=== PATIENT | female | born 1950 | race Caucasian/White ===

== ENCOUNTER 2019-06-04 20:21 | Inpatient (IN) | payer MEDICARE ==
[~2019-06-04] VITALS: Ht 162.6 cm; Wt 62.6 kg
--- NOTE | 2019-06-04 00:57 | NUR ---
GPS ADMISSION NOTES: ADMITTED A 69-YR OLD FEMALE, FROM [facility]. PT IS ON 5150 HOLD FOR DTS, DTO, GD. PER HOLD PT IS UNPREDICTABLE HAS BEEN INCREASINGLY AGITATED AND BECAME COMBATIVE, HITTING DAUGHTER AND HITTING CERVANTES. PT UNABLE TO CARE FOR SELF. UPON FACE TO FACE ASSESSMENT, PATIENT IS ALERT AND ORIENTED X1-2, CONFUSED, DISORIENTED, DISORGANIZED, AGITATED, AGGRESSIVE, COMBATIVE, AMBULATORY WITH STEADY GAIT. PT REFUSED TO SIGN CONSENT FORMS. PT'S RIGHTS DISCUSSED GUIDE TO PRESCRIPTION MEDICATIONS PROVIDED. V/S WNL. NO SOB. NO COMPLAIN OF PAIN/DISCOMFORT. NO APPARENT DISTRESS NOTED. BELONGINGS WERE INVENTORIED AND CHECKED FOR CONTRABAND. SKIN/BODY ASSESSMENT DONE. SKIN CLEAR AND INTACT. PT IS UNDER THE PSYCHIATRIC CARE OF DR. JOSEPH ORDERS OBTAINED, AND UNDER THE MEDICAL CARE OF DR. BOYKIN. ALL NEEDS ATTENDED AND ANTICIPATED. BED LOCKED AND PLACED IN LOWEST POSITION. SIDERAILS UPX2. CALL VENCES WITHIN REACH. WILL CONTINUE TO MONITOR Q15 MINS FOR SAFETY AND BEHAVIOR.
[2019-06-04] MEDS ORDERED: QUET50TA PO (21:25)
[2019-06-04] MEDS ORDERED: ALPR1TAB2 PO (21:25)
[2019-06-04] MEDS ORDERED: LEVO75TA7 PO (21:25)
[2019-06-04] MEDS ORDERED: SERT50TA PO (21:25)
[2019-06-04] MEDS ORDERED: ACETAMINOPHEN 325 MG TABLET PO PRN (21:30)
[2019-06-04] MEDS ORDERED: MAGNESIUM HYDROXIDE 30 ML UDC PO PRN (21:30)
[2019-06-04] MEDS ORDERED: BLOOD SUGAR DIAGNOSTIC 1 EACH STRIP IN ONE (21:30)
[2019-06-04] MEDS ORDERED: MAG HYDROX/AL HYDROX/SIMETH 30 ML UDC PO PRN (21:30)
[2019-06-04] MEDS: LORAZEPAM 0.5 MG TABLET PO PRN (21:38)
[2019-06-04 22:00] VITALS: BP 134/64
[2019-06-04] MEDS: TEMAZEPAM 7.5 MG CAPSULE PO PRN (22:34)
--- NOTE | 2019-06-04 23:25 | NUR ---
PT IS AGGRESSIVE, HOSTILE, HITTING STAFF, SCREAMING/YELLING, NON DIRECTABLE. CALLED AND SPOKE TO DR. JOSEPH ORDERED ZYPREXA 3MG IM ONCE. PREPARE AND ADMINISTERED. PT TOLERATED WELL. WILL CONTINUE TO MONITOR FOR SAFETY AND BEHAVIOR [id number].
[2019-06-04] MEDS ORDERED: OLANZAPINE 10 MG VIAL IM ONE (23:30)
[2019-06-05] MEDS: LORAZEPAM 0.5 MG TABLET PO PRN ×3 (02:01→19:30)
[2019-06-05 07:47] LABS: BASOPHILS % (AUTO) 0.3 % (0.0-2.0); HEMATOCRIT 42 % (33-45); HEMOGLOBIN 13.7 g/dL (11.5-14.8); LYMPHOCYTES # (AUTO) 0.5 /CMM (0.8-4.8); LYMPHOCYTES % (AUTO) 3.9 % (20.0-44.0); MEAN CORPUSCULAR HGB CONC 33 g/dl (31.0-36.0); MEAN CORPUSCULAR VOLUME 91 fL (82-100); MONOCYTES % (AUTO) 7.4 % (2.0-12.0); NEUTROPHILS # (AUTO) 12.2 /CMM (1.8-8.9); NEUTROPHILS % (AUTO) 88.4 % (43.0-81.0); PLATELET COUNT (AUTO) 152 /CMM (150-450); RED BLOOD CELL COUNT(AUTO) 4.56 MIL/uL (4.0-5.2); WHITE BLOOD COUNT (AUTO) 13.9 K/uL (4.3-11.0)
[2019-06-05 08:00] VITALS: BP 127/58
[2019-06-05 08:07] LABS: ALBUMIN 4.2 g/dL (3.4-5.0); BILIRUBIN,TOTAL 0.6 mg/dL (0.2-1.0); CALCIUM, SERUM 9.1 mg/dL (8.5-10.1); CREATININE 0.8 mg/dL (0.6-1.3); POTASSIUM 3.5 mmol/L (3.5-5.1); TOTAL PROTEIN, SERUM 7.2 g/dL (6.4-8.2)
[2019-06-05 08:21] LABS: CHOLESTEROL 263 mg/dL (<200); HDL CHOLESTEROL 65 mg/dL (40-60); LDL 175 mg/dL (0-99); TRIGLYCERIDES 81 mg/dL (30-150)
[2019-06-05] MEDS: LEVOTHYROXINE SODIUM 75 MCG TABLET PO SCH (08:38)
[2019-06-05] MEDS: SERTRALINE HCL 50 MG TABLET PO SCH (12:22)
--- NOTE | 2019-06-05 12:31 | NUR ---
GPS RN NOTE: PT PACING AROUND THE UNIT RESTLESS AND ANXIOUS ATIVAN 0.5 MG PO PRN GIVEN PER MD ORDER WILL CONTINUE MONITORING.
[2019-06-05 16:00] VITALS: BP 106/77
[2019-06-05 20:00] VITALS: BP 140/70
[2019-06-05] MEDS: BENZTROPINE MESYLATE (1 MG) 1 MG TABLET PO SCH (21:18)
[2019-06-05] MEDS: risperiDONE-M 0.5 MG TAB.RAPDIS PO SCH (21:18)
[2019-06-05] MEDS: TEMAZEPAM 7.5 MG CAPSULE PO PRN (21:54)
[2019-06-06] MEDS: LORAZEPAM 0.5 MG TABLET PO PRN ×3 (04:00→23:40)
[2019-06-06 07:00] LABS: APPEARANCE,URINE SL CLOUDY (CLEAR); BILIRUBIN,URINE 1+ (NEGATIVE); BLOOD, URINE TRACE Ery/uL (NEGATIVE); COLOR,URINE YELLOW (YELLOW); KETONES,URINE 1+ (NEGATIVE); LEUKOCYTE ESTERASE ,URINE 1+ (NEGATIVE); NITRITE, URINE NEGATIVE (NEGATIVE); PH,URINE 5.5 (5.0-8.0); PROTEIN,URINE TRACE mg/dl (NEGATIVE); UGLUCOSE NEGATIVE (NEGATIVE); UROBILINOGEN,URINE 0.2 EU/dL (0.2)
[2019-06-06 07:10] LABS: BACTERIA,URINE Few /HPF (None Seen); MUCUS,URINE Few /LPF (None Seen); SQUAMOUS EPITHELIAL CELL,UR Few /HPF (None Seen)
[2019-06-06 08:00] VITALS: BP 130/60
[2019-06-06] MEDS: LEVOTHYROXINE SODIUM 75 MCG TABLET PO SCH (08:13)
[2019-06-06] MEDS: SERTRALINE HCL 50 MG TABLET PO SCH (12:12)
[2019-06-06] MEDS: risperiDONE 0.25 MG TABLET PO SCH (13:35)
[2019-06-06 16:00] VITALS: BP 134/84
[2019-06-06 19:39] VITALS: BP 130/54
[2019-06-06] MEDS: BENZTROPINE MESYLATE (1 MG) 1 MG TABLET PO SCH (21:03)
[2019-06-06] MEDS: risperiDONE-M 0.5 MG TAB.RAPDIS PO SCH (21:03)
[2019-06-06] MEDS: TEMAZEPAM 7.5 MG CAPSULE PO PRN (21:29)
[2019-06-07 07:09] LABS: BASOPHILS % (AUTO) 0.5 % (0.0-2.0); EOSINOPHILS % (AUTO) 0.4 % (0.0-6.0); HEMATOCRIT 45 % (33-45); LYMPHOCYTES # (AUTO) 0.8 /CMM (0.8-4.8); LYMPHOCYTES % (AUTO) 9.1 % (20.0-44.0); MEAN CORPUSCULAR HGB CONC 33 g/dl (31.0-36.0); MEAN CORPUSCULAR VOLUME 91 fL (82-100); MONOCYTES # (AUTO) 0.8 /CMM (0.1-1.30); MONOCYTES % (AUTO) 9.7 % (2.0-12.0); NEUTROPHILS # (AUTO) 6.9 /CMM (1.8-8.9); NEUTROPHILS % (AUTO) 80.3 % (43.0-81.0); PLATELET COUNT (AUTO) 178 /CMM (150-450); RED BLOOD CELL COUNT(AUTO) 4.95 MIL/uL (4.0-5.2); WHITE BLOOD COUNT (AUTO) 8.6 K/uL (4.3-11.0)
[2019-06-07 07:30] LABS: ALBUMIN 4.5 g/dL (3.4-5.0); CALCIUM, SERUM 9.3 mg/dL (8.5-10.1); CREATININE 0.7 mg/dL (0.6-1.3); POTASSIUM 4.2 mmol/L (3.5-5.1); TOTAL PROTEIN, SERUM 7.8 g/dL (6.4-8.2)
[2019-06-07 08:00] VITALS: BP 150/63
[2019-06-07] MEDS: LORAZEPAM 0.5 MG TABLET PO PRN (08:46)
[2019-06-07] MEDS: LEVOTHYROXINE SODIUM 75 MCG TABLET PO SCH (08:46)
[2019-06-07] MEDS: risperiDONE 0.25 MG TABLET PO SCH ×3 (08:46→16:59)
[2019-06-07] MEDS ORDERED: Z GUARD REMEDY 4 OZ OINT TP SCH (09:00)
[2019-06-07] MEDS: SERTRALINE HCL 50 MG TABLET PO SCH (12:51)
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
--- NOTE | 2019-06-07 14:25 | NUR ---
INITIAL DISCHARGE PLAN: Per Ahsan [phone] he no longer is able to care for pt at home [address] [place] [address] and stated pt will be discharged to [facility] Address: [address] [place] [address] as pt already has a room. TIFFANY spoke with Lary, it network administrator who stated pt will go directly to their facility once stable for discharge. TIFFANY will help form a safe and proper discharge in collaboration with .
--- NOTE | 2019-06-07 15:26 | NUR ---
Group Note: SW encouraged pt to participate in group therapy on 06/07/19 at 2pm to discuss discharge planning. Pt has Dementia and unable to engage in a meaningful conversation. Pt is only alert to her name and stated that another pt was her previous . Pt unable to participate in a group discussion.
[2019-06-07 16:00] VITALS: BP 114/66
--- NOTE | 2019-06-07 19:30 | NUR ---
GPS RN NOTE, RECEIVED PATIENT AWAKE AND IN BED, NO S/S OR COMPLAINTS OF PAIN AT THIS TIME. PATIENT IS DISPLAYING NO S/S OF APPARENT DISTRESS AT THIS TIME. PATIENT BREATHING IS UNLABORED WITH EQUAL RISE AND FALL OF THE CHEST. PATIENT IS ALERT AND ORIENTED X 1 ON ROOM AIR WITH A SPO2 94 %. PATIENT IS COMPLIANT WITH MEDICATION, DISORGANIZED, CONFUSED, SUSPICIOUS, PARANOID, AND NEEDS CONSTANT REORIENTATION. PATIENT DENIES SUICIDE IDEATIONS AND HOMICIDAL IDEATIONS AT THIS TIME. PATIENT ASSISTED WITH TURNING AND REPOSITIONING Q2 HR AND PRN FOR COMFORT AND CIRCULATION. PATIENT HAS NO NEEDS AT THIS TIME. PATIENT EDUCATED ON THE USE OF THE CALL VENCES. PATIENT BED SIDE RAILS UP X 2 FOR SAFETY, BED IS LOCKED AND LOW. WILL CONTINUE TO MONITOR Q15 MIN WITH THE HELP OF STAFF TO MAINTAIN SAFETY.
[2019-06-07 20:10] VITALS: BP 108/54
[2019-06-07] MEDS: BENZTROPINE MESYLATE (1 MG) 1 MG TABLET PO SCH (22:09)
[2019-06-07] MEDS: risperiDONE-M 0.5 MG TAB.RAPDIS PO SCH (22:10)
[2019-06-07] MEDS: SIMVASTATIN 10 MG TABLET PO SCH (22:10)
[2019-06-07] MEDS: TEMAZEPAM 7.5 MG CAPSULE PO PRN (23:29)
--- NOTE | 2019-06-07 23:29 | NUR ---
GPS RN NOTE, PATIENT HAS A COMPLAINT OF NOT BEING ABLE TO SLEEP AND IS REQUESTING RESTORIL AT THIS TIME. PATIENT VITAL SIGNS ARE STABLE. GAVE RESTORIL 7.5MG PO HS PRN. WILL REASSESS FOR INSOMNIA AND I WILL CONTINUE TO MONITOR THIS PATIENT.
[2019-06-08] MEDS: LORAZEPAM 0.5 MG TABLET PO PRN ×2 (03:36→16:45)
--- NOTE | 2019-06-08 03:36 | NUR ---
GPS RN NOTE, PATIENT HAS A COMPLAINT OF FEELING ANXIOUS AND IS REQUESTING ATIVAN. PATIENT VITAL SIGNS ARE STABLE. GAVE ATIVAN 0.5MG PO Q6HR PRN ORDERED. WILL REASSESS FOR ANXIETY AND I WILL CONTINUE TO MONITOR THIS PATIENT.
[2019-06-08] MEDS: LEVOTHYROXINE SODIUM 75 MCG TABLET PO SCH (07:36)
[2019-06-08] MEDS: risperiDONE 0.25 MG TABLET PO SCH ×3 (07:50→16:45)
[2019-06-08 08:00] VITALS: BP 115/59
[2019-06-08 11:29] LABS: BASOPHILS # (AUTO) 0.1 /CMM (0.0-0.2); BASOPHILS % (AUTO) 0.7 % (0.0-2.0); EOSINOPHILS % (AUTO) 0.4 % (0.0-6.0); HEMATOCRIT 43 % (33-45); HEMOGLOBIN 14.7 g/dL (11.5-14.8); LYMPHOCYTES # (AUTO) 0.7 /CMM (0.8-4.8); LYMPHOCYTES % (AUTO) 10.1 % (20.0-44.0); MEAN CORPUSCULAR HGB CONC 34 g/dl (31.0-36.0); MEAN CORPUSCULAR VOLUME 91 fL (82-100); MONOCYTES # (AUTO) 0.7 /CMM (0.1-1.30); MONOCYTES % (AUTO) 9.3 % (2.0-12.0); NEUTROPHILS # (AUTO) 5.8 /CMM (1.8-8.9); NEUTROPHILS % (AUTO) 79.5 % (43.0-81.0); PLATELET COUNT (AUTO) 186 /CMM (150-450); RED BLOOD CELL COUNT(AUTO) 4.76 MIL/uL (4.0-5.2); WHITE BLOOD COUNT (AUTO) 7.3 K/uL (4.3-11.0)
[2019-06-08 11:52] LABS: ALBUMIN 4.5 g/dL (3.4-5.0); BILIRUBIN,DIRECT 0.2 mg/dL (0.0-0.2); CALCIUM, SERUM 9.3 mg/dL (8.5-10.1); CREATININE 0.7 mg/dL (0.6-1.3); MAGNESIUM 2.2 mg/dL (1.8-2.4); POTASSIUM 3.2 mmol/L (3.5-5.1); TOTAL PROTEIN, SERUM 7.7 g/dL (6.4-8.2)
[2019-06-08] MEDS: SERTRALINE HCL 50 MG TABLET PO SCH (12:24)
[2019-06-08] MEDS: DIVALPROEX SODIUM 125 MG CAP.SPRINK PO SCH ×2 (12:24→16:45)
--- NOTE | 2019-06-08 14:17 | NUR ---
GROUP NOTE: SW encouraged pt to participate in group therapy on this present day to discuss "positive coping skills." Pt has Dementia and unable to engage in a meaningful conversation. Pt is only alert to her name and stated that another pt was her previous . Pt unable to participate in a group discussion.
[2019-06-08] MEDS ORDERED: POTASSIUM CHLORIDE 20 MEQ TAB.PRT.SR PO ONE (14:30)
[2019-06-08 16:00] VITALS: BP 159/72
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
[2019-06-08 19:58] VITALS: BP 141/65
[2019-06-08 20:00] VITALS: BP 141/65
[2019-06-08] MEDS: BENZTROPINE MESYLATE (1 MG) 1 MG TABLET PO SCH (21:38)
[2019-06-08] MEDS: SIMVASTATIN 10 MG TABLET PO SCH (21:39)
[2019-06-08] MEDS: risperiDONE-M 0.5 MG TAB.RAPDIS PO SCH (21:39)
[2019-06-09 07:09] LABS: BASOPHILS # (AUTO) 0.1 /CMM (0.0-0.2); BASOPHILS % (AUTO) 0.8 % (0.0-2.0); EOSINOPHILS % (AUTO) 0.4 % (0.0-6.0); HEMATOCRIT 43 % (33-45); HEMOGLOBIN 14.4 g/dL (11.5-14.8); LYMPHOCYTES # (AUTO) 0.8 /CMM (0.8-4.8); LYMPHOCYTES % (AUTO) 12.4 % (20.0-44.0); MEAN CORPUSCULAR HGB CONC 34 g/dl (31.0-36.0); MEAN CORPUSCULAR VOLUME 91 fL (82-100); MONOCYTES # (AUTO) 0.7 /CMM (0.1-1.30); MONOCYTES % (AUTO) 10.2 % (2.0-12.0); NEUTROPHILS # (AUTO) 5.2 /CMM (1.8-8.9); NEUTROPHILS % (AUTO) 76.2 % (43.0-81.0); PLATELET COUNT (AUTO) 186 /CMM (150-450); WHITE BLOOD COUNT (AUTO) 6.8 K/uL (4.3-11.0)
[2019-06-09 07:21] LABS: ALBUMIN 4.2 g/dL (3.4-5.0); BILIRUBIN,TOTAL 0.9 mg/dL (0.2-1.0); CALCIUM, SERUM 9.1 mg/dL (8.5-10.1); CREATININE 0.7 mg/dL (0.6-1.3); TOTAL PROTEIN, SERUM 7.4 g/dL (6.4-8.2)
[2019-06-09] MEDS: LEVOTHYROXINE SODIUM 75 MCG TABLET PO SCH (07:31)
[2019-06-09] MEDS: risperiDONE 0.25 MG TABLET PO SCH ×3 (07:33→16:28)
[2019-06-09 08:00] VITALS: BP 130/73
[2019-06-09] MEDS: LORAZEPAM 0.5 MG TABLET PO PRN ×2 (08:18→21:12)
[2019-06-09] MEDS: DIVALPROEX SODIUM 125 MG CAP.SPRINK PO SCH ×3 (08:18→16:28)
[2019-06-09] MEDS: SERTRALINE HCL 50 MG TABLET PO SCH (12:14)
[2019-06-09 16:00] VITALS: BP 149/62
[2019-06-09 16:17] LABS: APPEARANCE,URINE TURBID (CLEAR); BILIRUBIN,URINE 1+ (NEGATIVE); BLOOD, URINE TRACE Ery/uL (NEGATIVE); COLOR,URINE DARK YELLO (YELLOW); KETONES,URINE 2+ (NEGATIVE); LEUKOCYTE ESTERASE ,URINE 1+ (NEGATIVE); NITRITE, URINE NEGATIVE (NEGATIVE); PROTEIN,URINE TRACE mg/dl (NEGATIVE); UGLUCOSE NEGATIVE (NEGATIVE); UROBILINOGEN,URINE 0.2 EU/dL (0.2)
[2019-06-09 16:25] LABS: BACTERIA,URINE Many /HPF (None Seen); RBC,URINE 0-2 /HPF (0-2); SQUAMOUS EPITHELIAL CELL,UR Rare /HPF (None Seen)
[2019-06-09 16:26] LABS: URINE AMORPHOUS URATE Many /HPF (None Seen)
[2019-06-09 20:14] VITALS: BP 144/75
[2019-06-09] MEDS: TEMAZEPAM 7.5 MG CAPSULE PO PRN (22:12)
[2019-06-09] MEDS: risperiDONE-M 0.5 MG TAB.RAPDIS PO SCH (22:12)
[2019-06-09] MEDS: BENZTROPINE MESYLATE (1 MG) 1 MG TABLET PO SCH (22:12)
[2019-06-09] MEDS: SIMVASTATIN 10 MG TABLET PO SCH (22:12)
[2019-06-10 07:48] LABS: ALBUMIN 3.8 g/dL (3.4-5.0); BILIRUBIN,DIRECT 0.2 mg/dL (0.0-0.2); BILIRUBIN,TOTAL 1.1 mg/dL (0.2-1.0); CREATININE 0.7 mg/dL (0.6-1.3); PHOSPHORUS 3.2 mg/dL (2.5-4.9); POTASSIUM 3.7 mmol/L (3.5-5.1); TOTAL PROTEIN, SERUM 6.7 g/dL (6.4-8.2)
[2019-06-10 08:00] VITALS: BP 161/68
[2019-06-10 08:48] LABS: BASOPHILS # (AUTO) 0.1 /CMM (0.0-0.2); BASOPHILS % (AUTO) 0.8 % (0.0-2.0); EOSINOPHILS % (AUTO) 0.5 % (0.0-6.0); HEMATOCRIT 43 % (33-45); HEMOGLOBIN 14.1 g/dL (11.5-14.8); LYMPHOCYTES # (AUTO) 1.1 /CMM (0.8-4.8); LYMPHOCYTES % (AUTO) 14.6 % (20.0-44.0); MEAN CORPUSCULAR HGB CONC 33 g/dl (31.0-36.0); MEAN CORPUSCULAR VOLUME 91 fL (82-100); MONOCYTES # (AUTO) 0.8 /CMM (0.1-1.30); MONOCYTES % (AUTO) 10.6 % (2.0-12.0); NEUTROPHILS # (AUTO) 5.7 /CMM (1.8-8.9); NEUTROPHILS % (AUTO) 73.5 % (43.0-81.0); PLATELET COUNT (AUTO) 191 /CMM (150-450); RED BLOOD CELL COUNT(AUTO) 4.67 MIL/uL (4.0-5.2); WHITE BLOOD COUNT (AUTO) 7.8 K/uL (4.3-11.0)
[2019-06-10] MEDS: LEVOTHYROXINE SODIUM 75 MCG TABLET PO SCH (09:03)
[2019-06-10] MEDS: risperiDONE 0.25 MG TABLET PO SCH ×3 (09:03→16:46)
--- NOTE | 2019-06-10 09:47 | NUR ---
initial PATIENT ALERT TO SELF, CONFUSED, VERY sleepy easy to arouse takes po medications well will continue to monitor.
--- NOTE | 2019-06-10 10:02 | NUR ---
TIFFANY contacted pts Ahsan [phone] and informed him pt is scheduled for a PROBABLE CAUSE HEARING on this present day. Pts stated that he wishes to attend and SW informed him that the hearing is scheduled for 4:00pm, however, it may be held earlier. stated that he will make himself available for the hearing and stated he wishes for pt to be discharged on this present day.
--- NOTE | 2019-06-10 14:44 | NUR ---
GROUP NOTE: SW encouraged pt to participate in group therapy on this present day to discuss "discharge planning." Pt has Dementia and unable to engage in a meaningful conversation. Pt is only alert to her name and believes her is on his way to pick her up.
[2019-06-10 16:00] VITALS: BP 139/51
--- NOTE | 2019-06-10 18:31 | NUR ---
CLOSING PT GIVEN ALL MEDICATIONS NEEDS TENDED TO KEPT SAFE BED IN LOW POSITION WITH GIVEN REPORT TO PM NURSE FOR CONTINUITY OF CARE
[2019-06-10 20:00] VITALS: BP 107/68
[2019-06-10] MEDS: LORAZEPAM 0.5 MG TABLET PO PRN (21:32)
[2019-06-10] MEDS: TEMAZEPAM 7.5 MG CAPSULE PO PRN (21:33)
[2019-06-10] MEDS: risperiDONE-M 0.5 MG TAB.RAPDIS PO SCH (21:33)
[2019-06-10] MEDS: BENZTROPINE MESYLATE (1 MG) 1 MG TABLET PO SCH (21:33)
[2019-06-10] MEDS: SIMVASTATIN 10 MG TABLET PO SCH (21:33)
[2019-06-11 08:00] VITALS: BP 125/80
[2019-06-11] MEDS: LEVOTHYROXINE SODIUM 75 MCG TABLET PO SCH (09:00)
[2019-06-11] MEDS: risperiDONE 0.25 MG TABLET PO SCH ×3 (09:00→16:33)
[2019-06-11] MEDS: LORAZEPAM 0.5 MG TABLET PO PRN ×2 (10:30→18:50)
--- NOTE | 2019-06-11 10:30 | NUR ---
wandering about floor and in to other pt's jules.a little agitated,given ativan 0.5 mg po.
[2019-06-11 16:00] VITALS: BP 112/68
--- NOTE | 2019-06-11 18:50 | NUR ---
medicated for agitation with ativan.
--- NOTE | 2019-06-11 19:15 | NUR ---
RN NOTES: RECEIVED REPORT FROM ASHLEE Verde RN. PT NOTED TO BE AMBULATING AROUND THE HALLWAY, ALWAYS TRYING TO PICK SOMETHING FROM THE FLOOR, FALL RISK, ASSISTED BACK TO BED. PT A/O X1-2, ON RA RESPIRATIONS EVEN AND UNLABORED. DENIES ANY SI/HI AT THIS TIME. SAFETY PRECAUTIONS FOR FALL INITIATED, SIDE RAILS UP X3, FOR SAFETY, WILL CONTINUE TO MONITOR [id number] FOR SAFETY AND ANY CHANGES IN BEHAVIOR.
[2019-06-11 20:00] VITALS: BP 105/69
[2019-06-11] MEDS: BENZTROPINE MESYLATE (1 MG) 1 MG TABLET PO SCH (21:12)
[2019-06-11] MEDS: risperiDONE-M 0.5 MG TAB.RAPDIS PO SCH (21:12)
[2019-06-11] MEDS: SIMVASTATIN 10 MG TABLET PO SCH (21:13)
[2019-06-12 08:00] VITALS: BP 134/67
[2019-06-12] MEDS: LEVOTHYROXINE SODIUM 75 MCG TABLET PO SCH (09:07)
[2019-06-12] MEDS: risperiDONE 0.25 MG TABLET PO SCH ×3 (09:08→18:16)
[2019-06-12] MEDS: LORAZEPAM 0.5 MG TABLET PO PRN ×2 (09:08→20:29)
--- NOTE | 2019-06-12 09:08 | NUR ---
rn notes administered ativan 0.5 mg po prn for anxiety, per patient request, v/s taken bp 134/67, p-68, continued monitoring.
[2019-06-12 15:53] VITALS: BP 132/70
[2019-06-12 20:27] VITALS: BP 146/96
[2019-06-12] MEDS: risperiDONE-M 0.5 MG TAB.RAPDIS PO SCH (21:06)
[2019-06-12] MEDS: SIMVASTATIN 10 MG TABLET PO SCH (21:06)
[2019-06-12] MEDS: BENZTROPINE MESYLATE (1 MG) 1 MG TABLET PO SCH (21:20)
[2019-06-13 08:00] VITALS: BP 135/68
[2019-06-13] MEDS: risperiDONE 0.25 MG TABLET PO SCH ×3 (08:46→16:22)
[2019-06-13] MEDS: LEVOTHYROXINE SODIUM 75 MCG TABLET PO SCH (08:46)
[2019-06-13] MEDS: LORAZEPAM 0.5 MG TABLET PO PRN ×2 (10:57→19:31)
--- NOTE | 2019-06-13 11:00 | NUR ---
RN NOTES PT NOTED BECOMING INCREASINGLY MORE AND MORE AGITATED. PRN 0.5MG ATIVAN GIVEN. WILL CONTINUE TO MONITOR.
--- NOTE | 2019-06-13 13:17 | NUR ---
TIFFANY contacted pts Ahsan [phone] and informed him pt is scheduled for discharge tomorrow Thursday06/14/19. stated that his son in law will pick pt up at 1200pm.
[2019-06-13 16:00] VITALS: BP 127/99
[2019-06-13 19:56] VITALS: BP 151/63
[2019-06-13] MEDS: SIMVASTATIN 10 MG TABLET PO SCH (21:25)
[2019-06-13] MEDS: BENZTROPINE MESYLATE (1 MG) 1 MG TABLET PO SCH (21:25)
[2019-06-13] MEDS: risperiDONE-M 0.5 MG TAB.RAPDIS PO SCH (21:25)
[2019-06-13] MEDS: TEMAZEPAM 7.5 MG CAPSULE PO PRN (23:23)
[2019-06-14 08:00] VITALS: BP 124/56
[2019-06-14] MEDS: LEVOTHYROXINE SODIUM 75 MCG TABLET PO SCH (08:43)
[2019-06-14] MEDS: risperiDONE 0.25 MG TABLET PO SCH (08:43)
[2019-06-14] MEDS: LORAZEPAM 0.5 MG TABLET PO PRN (08:44)
--- NOTE | 2019-06-14 08:44 | NUR ---
RN NOTES ADMINISTERED ATIVAN 0.5 MG PO PRN FOR ANXIETY, HARD TO FOLLOW DIRECTION, V/S TAKEN BP -124/56, P-70. CONTINUED MONITORING.
--- NOTE | 2019-06-14 10:22 | NUR ---
DISCHARGE NOTE: Pt will be discharging at 12:00pm via private vehicle to [facility] Address: [address] [place] [address] . Pts Ahsan [phone] will be picking pt up and transporting to assisted living. Pts mood is confused and disorganized with congruent affect. Pt denied visual/auditory hallucinations and denied suicidal/homicidal ideation. Pt will follow up with Psychiatrist: Dr. Ayan Celestin Address: [address] [place] [address] and [facility] [place]: Dr. Gray Mckeon Address: [address] [place] [address] [place] [address] . The multidisciplinary exit care form was done, printed, signed, and given to the patient.
--- NOTE | 2019-06-14 12:35 | NUR ---
SEED LABORATORY TECHNICIAN NOTES PATIENT DISCHARGE AT THIS TIME GOING [facility]. PATIENT A/O X2/3, WITH FORGETFULNESS. PATIENT STABLE NO ACUTE RESPIRATORY DISTRESS, V/S STABLE, MED COMPLAINS, AMBULATORY SELF CARE. PATIENT REFUSED SI/HI/AVH AT THIS TIME OF DISCHARGE. MED RECONCILIATION AND DISCHARGE ORDER REVIEWED AND EXPLAINED TO PATIENT AND SECOND OPERATOR NAME GILBERTO. SECOND OPERATOR VERBALIZED UNDERSTANDING. BELONGING RETURNED BACK TO THE PATIENT , ONLY MISSING GREEN PANTS, AND BLACK SWEETER WILL FOLLOW UP WHEN FENDED WILL CALL FAMILY TO COIN WRAPPING MACHINE OPERATOR. PATIENT WILL FOLLOW PRIMARY PSYCHIATRIST, AND SENIOR ACCOUNT REPRESENTATIVE. ESCORTED PATIENT TO THE LOBBY FOR SAFETY. PAPERWORK HANDED TO THE SECOND OPERATOR, ALS PRESCRIPTIONS FAXED TO THE [facility] FAX # [phone]. PATIENT COIN WRAPPING MACHINE OPERATOR SECOND OPERATOR NAME GILBERTO PHONE #-[phone].
== END 2019-06-14 12:52 | DRG 885 ==
LOC: GPS 20:21
PROVIDERS: ADMIT Psychiatry & Neurology Psychosomatic Medicine; ATTEND Internal Medicine
DX: F25.9 Schizoaffective disorder, unspecified (principal); F01.50 Vascular dementia, unspecified severity, without behavioral disturbance, psychotic disturbance, mood disturbance, and anxiety; R45.851 Suicidal ideations; E03.9 Hypothyroidism, unspecified; F03.90 Unspecified dementia, unspecified severity, without behavioral disturbance, psychotic disturbance, mood disturbance, and anxiety; F41.9 Anxiety disorder, unspecified; R45.850 Homicidal ideations; Z73.6 Limitation of activities due to disability; R74.0 Nonspecific elevation of levels of transaminase and lactic acid dehydrogenase [LDH]
CPT/HCPCS: 36415; 80048-TC; 80053-TC; 80061-TC; 80076-TC; 81000-TC; 83735-TC; 84100-TC; 84443-TC; 85025-TC; 87081-TC; 87086-TC; 92526; 92611-TC; J3490

== ENCOUNTER 2022-07-01 09:56 | Inpatient (IN) | payer MEDICARE, OTHER ==
[~2022-07-01] VITALS: Ht 160 cm; Wt 47.2 kg
[~2022-07-01 09:56] MED LIST: LEVO75TA7 PO
[2022-07-01 10:58] LABS: BASOPHILS # (AUTO) 0.1 K/uL (0.0-0.2); BASOPHILS % (AUTO) 1.3 % (0.0-2.0); EOSINOPHILS % (AUTO) 2.2 % (0.0-6.0); HEMATOCRIT 39 % (33-45); HEMOGLOBIN 12.7 g/dL (11.5-14.8); LYMPHOCYTES % (AUTO) 14.1 % (20.0-44.0); MEAN CORPUSCULAR HGB CONC 32 g/dl (31.0-36.0); MEAN CORPUSCULAR VOLUME 87 fL (82-100); MONOCYTES # (AUTO) 0.8 K/uL (0.1-1.30); NEUTROPHILS # (AUTO) 4.7 K/uL (1.8-8.9); NEUTROPHILS % (AUTO) 70.4 % (43.0-81.0); PLATELET COUNT (AUTO) 185 K/uL (150-450); RED BLOOD CELL COUNT(AUTO) 4.51 MIL/uL (4.0-5.2); WHITE BLOOD COUNT (AUTO) 6.7 K/uL (4.3-11.0)
[2022-07-01 11:18] LABS: ALANINE AMINOTRANSFERASE 13 U/L (12-78); ALBUMIN 3.3 g/dL (3.4-5.0); ALCOHOL, BLOOD < 3 mg/dL (0-0); ALKALINE PHOSPHATASE 67 U/L (46-116); ASPARTATE AMINOTRANSFERASE 13 U/L (15-37); BILIRUBIN,DIRECT 0.1 mg/dL (0.0-0.2); BILIRUBIN,TOTAL 0.3 mg/dL (0.2-1.0); CALCIUM, SERUM 8.9 mg/dL (8.5-10.1); CARBON DIOXIDE 30 mmol/L (21-32); CHLORIDE 106 mmol/L (98-107); CREATININE 0.8 mg/dL (0.6-1.3); GLUCOSE 102 mg/dL (74-106); POTASSIUM 3.7 mmol/L (3.5-5.1); SODIUM SERUM 143 mmol/L (136-145); TOTAL PROTEIN, SERUM 6.5 g/dL (6.4-8.2); UREA NITROGEN, BLOOD 17 mg/dL (7-18)
[2022-07-01 11:38] LABS: ACETAMINOPHEN 0 ug/ml (10-30)
--- NOTE | 2022-07-01 11:55 | NUR ---
chandra pink sent to lab
--- NOTE | 2022-07-01 11:56 | NUR ---
UA SENT TO LAB
[2022-07-01] MEDS ORDERED: SERT50TA12 PO (12:06)
[2022-07-01] MEDS ORDERED: SERT100T12 PO (12:06)
[2022-07-01] MEDS ORDERED: RISP0.2515 PO ×2 (12:06)
[2022-07-01] MEDS ORDERED: ALPR0.255 PO (12:06)
[2022-07-01 12:17] LABS: BILIRUBIN,URINE NEGATIVE (NEGATIVE); COLOR,URINE YELLOW (YELLOW); LEUKOCYTE ESTERASE ,URINE NEGATIVE (NEGATIVE); NITRITE, URINE NEGATIVE (NEGATIVE); PROTEIN,URINE NEGATIVE (NEGATIVE); UGLUCOSE NEGATIVE (NEGATIVE); UROBILINOGEN,URINE 0.2 EU/dL (0.2)
[2022-07-01] MEDS ORDERED: risperiDONE 0.25 MG TABLET PO ONE ×2 (12:18→12:30)
--- NOTE | 2022-07-01 12:24 | NUR ---
ART, LINOTYPE MACHINIST APPRENTICE CALLED FOR PSYCH EVAL.
[2022-07-01] MEDS ORDERED: SERTRALINE HCL 50 MG TABLET PO SCH ×2 (12:30)
[2022-07-01] MEDS ORDERED: SERTRALINE HCL 50 MG TABLET PO ONE (12:30)
[2022-07-01 13:09] LABS: BACTERIA,URINE Few /HPF (None Seen); MUCUS,URINE Few /LPF (None Seen); RBC,URINE 0-2 /HPF (0-2); SQUAMOUS EPITHELIAL CELL,UR Few /HPF (None Seen); WBC,URINE 0-2 /HPF (0-3)
--- NOTE | 2022-07-01 14:23 | NUR ---
MRSA SWAB COMPLETED AND BELONGINGS FORM COMPLETED
--- NOTE | 2022-07-01 14:30 | NUR ---
PT TRANSFERRED TO WITH BELONGINGS. PT STABLE AT THIS TIME. REPORT GIVEN TO ABRAHAM NUNN.
[2022-07-01] MEDS ORDERED: MAG HYDROX/AL HYDROX/SIMETH 30 ML UDC PO PRN (15:00)
[2022-07-01] MEDS ORDERED: BLOOD SUGAR DIAGNOSTIC 1 EACH STRIP IN ONE (15:00)
[2022-07-01] MEDS ORDERED: MAGNESIUM HYDROXIDE 30 ML UDC PO PRN (15:00)
[2022-07-01] MEDS ORDERED: LORAZEPAM 0.5 MG TABLET PO PRN (15:00)
[2022-07-01] MEDS ORDERED: ACETAMINOPHEN 325 MG TABLET PO PRN (15:00)
--- NOTE | 2022-07-01 15:38 | NUR ---
Treatment Plan: Pt is very confused and unable to sign treatment plan.
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
--- NOTE | 2022-07-01 15:38 | NUR ---
TIFFANY Family Contact: Pt's Nixon ([phone]) is involved in the care and is the DPOA. TIFFANY contacted Nixon and discussed treatment/discharge planning. He reported he is unable to care for pt at home and would want a SNF.
--- NOTE | 2022-07-01 15:38 | NUR ---
TIFFANY Initial Discharge Plan: Patient currently resides at home [place] at [address] [place] [address]; ([phone]). Pt has two caregives at home. Pt's Nixon ([phone]) is involved in the care and is the DPOA. TIFFANY contacted Nixon and discussed treatment/discharge planning. He reported he is unable to care for pt at home and would want a SNF. TIFFANY will work with the MD, family, and treatment team to help coordinate appropriate discharge.
[2022-07-01 16:10] VITALS: BP 154/81
--- NOTE | 2022-07-01 17:51 | NUR ---
ADMITTED A 72 Y/O FEMALE ON 5150 HOLD FOR GD , PER HOLD PT HAS BEEN PROGRESSIVELY HITTING ,KICKING ,AND BITING CARE GIVERS ,CAREGIVER UNABLE TO CARE FOR HER .UPON FACE TO FACE ASSESSMENT PATIENT IS CONFUSED ,DEPRESSED ,DISHELVED EASILY GETS AGITATED, DISORGANIZED, VERY POOR HYGIENE ,PT EASILY AGITATED ,NOT FOLLOWING DIRECTIONS ,REQUIRE CONSTANT REDIRECTIONS TIME, PT IS CONFUSED POOR INSIGHT ,POOR JUDGEMENT, PT. REFUSED TO SIGNS ADMISSION CONSENT PAPERS , DUE TO MENTAL STATUS .BOTH MD AWARE AND NOTIFIED OF THE ADMISSION, BELONGINGS CONTRABAND WERE DONE , NURSING ASSESSMENT DONE ,PT. RIGHTS HAND BOOK GIVEN AND EXPLAINED TO PATIENT ,PROVIDE THE PT WITH HANDBOOK, AND MEDICATIONS GUIDE, ENVIRONMENTAL SAFETY CHECK DONE, ENCOURAGED PT TO VERBALIZED FEELING AND THOUGHTS , ORIENT TO UNIT POLICY, NO ACUTE DISTRESS NOTED,VITAL SIGNS WNL ,DENIES ANY PAIN AT THIS TIME,WILL CONTINUE TO MONITOR FOR Q15 SAFETY .
--- NOTE | 2022-07-01 19:35 | NUR ---
GPS RN OPENING NOTES: RECEIVED PATIENT IN HALLWAY SITTING IN CHELI CHAIR, AWAKE A/O X1. FLAT AFFECT, DISHEVELED, ANXIOUS, RESTLESS, DISORGANIZED, DISORIENTED CONFUSED. UNABLE TO GIVE APPROPRIATE ANSWERS TO QUESTIONS. NEEDS FREQUENT REDIRECTION. NO S/S OF DISTRESS. RESPIRATION EVEN AND UNLABORED WITH EQUAL RISE AND FALL OF THE CHEST, ON ROOM AIR. PATIENT IS OFFERED FLUID AND SNACKS TOLERATED. WILL CONTINUE TO MONITOR Q15 MINS FOR MOOD, BEHAVIOR AND SAFETY. Addendum: 07/01/22 at 2025 by DARLIN RICE RN ERROR CHARTED UNDER ANOTHER STAFF
[2022-07-01] MEDS: TEMAZEPAM 7.5 MG CAPSULE PO PRN (21:38)
--- NOTE | 2022-07-01 21:43 | NUR ---
GPS RN NOTES: RESTORIL 7.5MG GIVEN PO FOR SLEEP AT 2137. WILL CONTINUE TO MONITOR.
[2022-07-01 22:02] VITALS: BP 125/59
[2022-07-02 07:00] LABS: ALANINE AMINOTRANSFERASE 12 U/L (12-78); ALBUMIN 3.5 g/dL (3.4-5.0); ALKALINE PHOSPHATASE 65 U/L (46-116); ASPARTATE AMINOTRANSFERASE 12 U/L (15-37); BILIRUBIN,TOTAL 0.5 mg/dL (0.2-1.0); CALCIUM, SERUM 8.8 mg/dL (8.5-10.1); CARBON DIOXIDE 29 mmol/L (21-32); CHLORIDE 105 mmol/L (98-107); CREATININE 0.9 mg/dL (0.6-1.3); GLUCOSE 87 mg/dL (74-106); POTASSIUM 4.1 mmol/L (3.5-5.1); SODIUM SERUM 141 mmol/L (136-145); TOTAL PROTEIN, SERUM 6.6 g/dL (6.4-8.2); UREA NITROGEN, BLOOD 18 mg/dL (7-18)
[2022-07-02 07:07] LABS: CHOLESTEROL 286 mg/dL (<200); HDL CHOLESTEROL 54 mg/dL (40-60); LDL 208 mg/dL (0-99); TRIGLYCERIDES 90 mg/dL (30-150)
[2022-07-02 08:00] VITALS: BP 126/85
--- NOTE | 2022-07-02 08:15 | NUR ---
RN OPENING NOTE PATIENT AWAKE IN CHELI CHAIR. A/O X1, CONFUSED, DISORIENTED. NO S/S OF PAIN NOTED AT THIS TIME. ON ROOM AIR, NO DISTRESS OR SHORTNESS OF BREATH NOTED. PATIENT COMPLAINT WITH MEDICATION. PATIENT DENIES SUICIDE IDEATION AND HOMICIDAL IDEATION AT THIS TIME. PATIENT EDUCATED ON THE USE OF CALL VENCES. FALL AND SAFETY MEASURES IN PLACE, BED ALARM ON, BED IN LOW AND LOCK POSITION, CALL LIGHT AND TABLE WITHIN EASY REACH, SIDE RAILS UP X2. WILL CONTINUE TO MONITOR Q15 MINUTES WITH THE HELP OF STAFF TO MAINTAIN SAFETY.
[2022-07-02] MEDS: risperiDONE 1 MG TABLET PO SCH ×3 (11:27→21:56)
--- NOTE | 2022-07-02 12:04 | NUR ---
TIFFANY Family Contact: TIFFANY received a call from pt's neighbor Kristie ([phone]) who stated that pt's Nixon GRAHAM ([phone]) who gave approval to speak and left a voicemail. TIFFANY contacted Nixon GRAHAM ([phone]) who is giving verbal consent to speak to Kristie in regards to placement, he stated that Kristie is knowledgeable.
--- NOTE | 2022-07-02 12:06 | NUR ---
Neighbor Contact: Per patient's husbands permission GLADYS Nixon ([phone]) this pattern chart writer contacted Kristie ([phone]). TIFFANY discussed discharge planning and she stated that they have been looking into facilities in [place] and she will give me further information. TFIFANY recommended [place] and [facility]. She stated that she will be looking into these facilities and will get back to this pattern chart writer as soon as possible.
[2022-07-02] MEDS: DIVALPROEX SODIUM 125 MG CAP.SPRINK PO SCH ×2 (12:29→16:24)
[2022-07-02 16:00] VITALS: BP 115/75
[2022-07-02] MEDS: SERTRALINE HCL 50 MG TABLET PO SCH (16:24)
--- NOTE | 2022-07-02 19:49 | NUR ---
GPS RN OPENING NOTES: RECEIVED PATIENT IN HALLWAY SITTING IN CHELI CHAIR, AWAKE A/O X1. FLAT AFFECT, DISHEVELED, PASSIVE, WITHDRAWN, DISORGANIZED, DISORIENTED CONFUSED. UNABLE TO GIVE APPROPRIATE ANSWERS TO QUESTIONS. NEEDS FREQUENT REDIRECTION. NO S/S OF DISTRESS. RESPIRATION EVEN AND UNLABORED WITH EQUAL RISE AND FALL OF THE CHEST, ON ROOM AIR. PATIENT IS OFFERED FLUID AND SNACKS TOLERATED. WILL CONTINUE TO MONITOR Q15 MINS FOR MOOD, BEHAVIOR AND SAFETY.
[2022-07-02 20:00] VITALS: BP 121/71
--- NOTE | 2022-07-02 21:58 | NUR ---
GPS RN NOTES: RISPERDAL 0.5MG WASTED PER PARTIAL DOSE ORDER.
[2022-07-02] MEDS: TEMAZEPAM 7.5 MG CAPSULE PO PRN (22:27)
--- NOTE | 2022-07-02 22:29 | NUR ---
GPS RN NOTES: RESTORIL 7.5MG GIVEN PO FOR SLEEP AT 2226. WILL CONTINUE TO MONITOR.
[2022-07-03 08:00] VITALS: BP 154/78
[2022-07-03] MEDS: risperiDONE 1 MG TABLET PO SCH ×3 (08:20→20:44)
[2022-07-03] MEDS: DIVALPROEX SODIUM 125 MG CAP.SPRINK PO SCH ×3 (08:20→16:07)
[2022-07-03] MEDS: SERTRALINE HCL 50 MG TABLET PO SCH ×2 (08:20→16:07)
--- NOTE | 2022-07-03 10:00 | NUR ---
Received pt. asleep in bed, breathing is even and unlabored. Ate 50% for breakfast with minimal assistance and due meds given. Morning care rendered and pt. is cooperative to care. Pt. is confused, quiet and interacts minimally. Encouraged to verbalize feelings and reoriented to person, place, day, date and situations. Needs attended and will continue to monitor for safety.
--- NOTE | 2022-07-03 12:54 | NUR ---
TIFFANY Family Contact: TIFFANY spoke with patient's niece Donna Small ([phone]) who stated that family is in agreement of this sign writer hand to send clinicals to [facility].
--- NOTE | 2022-07-03 12:56 | NUR ---
SNF Referral: TIFFANY sent clinicals to [facility] ([phone]) and sent placement option. SW sent H & P, progress notes, and medication list.
[2022-07-03 16:00] VITALS: BP 143/75
[2022-07-03] MEDS: ENSURE ENLIVE 237 ML LIQUID (VANILLA) PO SCH (16:07)
--- NOTE | 2022-07-03 19:30 | NUR ---
RECEIVED PT ASLEEP IN BED BUT EASILY AWAKENS, NO S/S OR COMPLAINTS OF PAIN AT THIS TIME. PT IS DISPLAYING NO S/S OF APPARENT DISTRESS AT THIS TIME. ON ROOM AIR. PT BREATHING IS UNLABORED WITH EQUAL RISE AND FALL OF THE CHEST. PT IS ALERT AND ORIENTED X1. PASSIVE, WITHDRAWN, DISORGANIZED, DISORIENTED CONFUSED. UNABLE TO GIVE APPROPRIATE ANSWERS TO QUESTIONS. NEEDS FREQUENT REDIRECTION. NO S/S OF DISTRESS. PT DENIES SUICIDE IDEATIONS AND HOMICIDAL IDEATIONS AT THIS TIME. PT IS AMBULATORY STEADY GAIT. PT HAS NO NEEDS AT THIS TIME. PT EDUCATED ON THE USE OF THE CALL VENCES. PT BED SIDE RAILS UP X2 FOR SAFETY. BED IS LOCKED AND IN LOW. WILL CONTINUE TO MONITOR Q15 MIN WITH THE HELP OF STAFF TO MAINTAIN SAFETY.
[2022-07-03 20:00] VITALS: BP 125/79
--- NOTE | 2022-07-04 06:41 | NUR ---
PT ASLEEP IN BED BUT EASILY AWAKENS, NO S/S OR COMPLAINTS OF PAIN AT THIS TIME. PT IS DISPLAYING NO S/S OF APPARENT DISTRESS AT THIS TIME. ON ROOM AIR. PT BREATHING IS UNLABORED WITH EQUAL RISE AND FALL OF THE CHEST. PT IS ALERT AND ORIENTED X1. PASSIVE, WITHDRAWN, DISORGANIZED, DISORIENTED CONFUSED. UNABLE TO GIVE APPROPRIATE ANSWERS TO QUESTIONS. NEEDS FREQUENT REDIRECTION. NO S/S OF DISTRESS. PT DENIES SUICIDE IDEATIONS AND HOMICIDAL IDEATIONS AT THIS TIME. DUE MED GIVEN ORDERED. NEEDS ATTENDED. SAFETY PRECAUTIONS MAINTAINED, PT BED SIDE RAILS UP X2 FOR SAFETY. BED IS LOCKED AND IN LOW POSITION. WILL ENDORSE TO NEXT NURSE ON DUTY FOR CONTINUITY OF CARE.
[2022-07-04 08:00] VITALS: BP 157/82
--- NOTE | 2022-07-04 08:21 | NUR ---
SNF Contact: SW received a call from Aracelis ([phone]) from [facility] who stated that pt is accepted.
[2022-07-04] MEDS: DIVALPROEX SODIUM 125 MG CAP.SPRINK PO SCH ×3 (08:34→16:38)
[2022-07-04] MEDS: ENSURE ENLIVE 237 ML LIQUID (VANILLA) PO SCH ×2 (08:34→16:38)
[2022-07-04] MEDS: SERTRALINE HCL 50 MG TABLET PO SCH ×2 (08:34→16:38)
[2022-07-04] MEDS: risperiDONE 1 MG TABLET PO SCH ×3 (09:26→20:38)
--- NOTE | 2022-07-04 10:27 | NUR ---
TIFFANY Family Contact: TIFFANY spoke with pt's Nixon GRAHAM ([phone]) and notified pt is accepted at [facility]. He was agreeable of this. TIFFANY contacted Donna christopher ([phone]) and left a voicemail of pt being accepted at [facility].
[2022-07-04 16:00] VITALS: BP 137/81
--- NOTE | 2022-07-04 19:00 | NUR ---
RN-NOTES PATIENT IS COOPERATIVE WITH CARE ,ALERT X1 , NO ACUTE DISTRESS NOTED.COMPLIANT WITH MEDICATIONS. NOTED WITH TALKING AND MUMBLING TO SELF. NEEDS MAXIMUM ASSIST WITH ADL'S AND FEEDING.ALL NEEDS ATTENDED AND ANTICIPATED. ENCOURAGED AND ASSIST WITH REPOSITIONING Q 2HRS. [facility] [place] CARE RENDERED. WILL CONT.MONITORING FOR SAFETY AND BEHAVIOR.WILL ENDORSE TO INCOMING SHIFT FOR CONTINUITY OF CARE.
--- NOTE | 2022-07-04 19:30 | NUR ---
RECEIVED PT AWAKE IN BED, NO S/S OR COMPLAINTS OF PAIN AT THIS TIME. PT IS DISPLAYING NO S/S OF APPARENT DISTRESS AT THIS TIME. ON ROOM AIR. PT BREATHING IS UNLABORED WITH EQUAL RISE AND FALL OF THE CHEST. PT IS ALERT AND ORIENTED X1. PASSIVE, WITHDRAWN, DISORGANIZED, DISORIENTED CONFUSED. UNABLE TO GIVE APPROPRIATE ANSWERS TO QUESTIONS. NEEDS FREQUENT REDIRECTION. PT DENIES SUICIDE IDEATIONS AND HOMICIDAL IDEATIONS AT THIS TIME. PT CAN TRANSFER FROM BED TO CHAIR WITH ASSISTANCE. PT HAS NO NEEDS AT THIS TIME. SAFETY MEASURES IN PLACE. PT BED SIDE RAILS UP X2 FOR SAFETY. BED IS LOCKED AND IN LOW POSITION. WILL CONTINUE TO MONITOR Q15 MIN WITH THE HELP OF STAFF TO MAINTAIN SAFETY.
[2022-07-04 20:46] VITALS: BP 131/70
--- NOTE | 2022-07-05 06:11 | NUR ---
PATIENT ASLEEP IN BED BUT CAN EASILY BE AWAKEN. A/O X2. PASSIVE, DISORIENTED AND CONFUSED. UNABLE TO GIVE APPROPRIATE ANSWERS TO QUESTIONS. NO S/S OF DISTRESS. RESPIRATION EVEN AND UNLABORED WITH EQUAL RISE AND FALL OF THE CHEST, ON ROOM AIR. PT DENIES SUICIDE IDEATIONS AND HOMICIDAL IDEATIONS AT THIS TIME. PT CAN TRANSFER FROM BED TO CHAIR WITH ASSISTANCE DUE MED GIVEN ORDERED. PT HAS NO NEEDS AT THIS TIME. SAFETY PRECAUTIONS MAINTAINED. WILL ENDORSE TO NEXT NURSE ON DUTY FOR CONTINUITY OF CARE.
[2022-07-05 07:39] LABS: BASOPHILS % (AUTO) 0.8 % (0.0-2.0); EOSINOPHILS % (AUTO) 2.6 % (0.0-6.0); HEMATOCRIT 43 % (33-45); HEMOGLOBIN 14.1 g/dL (11.5-14.8); LYMPHOCYTES # (AUTO) 0.7 K/uL (0.8-4.8); LYMPHOCYTES % (AUTO) 11.4 % (20.0-44.0); MEAN CORPUSCULAR HGB CONC 33 g/dl (31.0-36.0); MEAN CORPUSCULAR VOLUME 86 fL (82-100); MONOCYTES # (AUTO) 0.6 K/uL (0.1-1.30); MONOCYTES % (AUTO) 8.5 % (2.0-12.0); NEUTROPHILS % (AUTO) 76.7 % (43.0-81.0); PLATELET COUNT (AUTO) 181 K/uL (150-450); RED BLOOD CELL COUNT(AUTO) 4.98 MIL/uL (4.0-5.2); WHITE BLOOD COUNT (AUTO) 6.5 K/uL (4.3-11.0)
[2022-07-05 08:00] VITALS: BP 121/80
[2022-07-05 08:29] LABS: ALBUMIN 3.5 g/dL (3.4-5.0); BILIRUBIN,TOTAL 0.5 mg/dL (0.2-1.0); CALCIUM, SERUM 8.9 mg/dL (8.5-10.1); CREATININE 0.8 mg/dL (0.6-1.3); POTASSIUM 4.2 mmol/L (3.5-5.1); TOTAL PROTEIN, SERUM 6.9 g/dL (6.4-8.2)
[2022-07-05] MEDS: ENSURE ENLIVE 237 ML LIQUID (VANILLA) PO SCH ×2 (08:39→16:56)
[2022-07-05] MEDS: risperiDONE 1 MG TABLET PO SCH ×3 (09:40→21:44)
[2022-07-05] MEDS: SERTRALINE HCL 50 MG TABLET PO SCH ×2 (09:42→16:56)
[2022-07-05] MEDS: DIVALPROEX SODIUM 125 MG CAP.SPRINK PO SCH ×3 (09:42→16:56)
[2022-07-05 16:00] VITALS: BP 122/75
--- NOTE | 2022-07-05 18:49 | NUR ---
NURSE NOTE: PT IS COOPERATIVE WITH CARE ,ALERT X1 , NO ACUTE DISTRESS NOTED. COMPLIANT WITH MEDICATIONS. PT MUMBLES TO SELF ALL THROUGHOUT SHIFT. VISITED DURING SHIFT. NEEDS MAXIMUM ASSIST WITH ADL'S AND FEEDING. ALL NEEDS ATTENDED AND ANTICIPATED. ENCOURAGED AND ASSIST WITH REPOSITIONING Q 2HRS. GOOD [place] CARE RENDERED. WILL CONT.MONITORING FOR SAFETY AND BEHAVIOR.WILL ENDORSE TO INCOMING SHIFT FOR CONTINUITY OF CARE.
[2022-07-05 20:43] VITALS: BP 129/66
[2022-07-06 08:00] VITALS: BP 124/66
[2022-07-06] MEDS: SERTRALINE HCL 50 MG TABLET PO SCH ×2 (08:43→17:41)
[2022-07-06] MEDS: ENSURE ENLIVE 237 ML LIQUID (VANILLA) PO SCH ×2 (08:43→17:41)
[2022-07-06] MEDS: risperiDONE 1 MG TABLET PO SCH ×3 (08:43→21:02)
[2022-07-06] MEDS: DIVALPROEX SODIUM 125 MG CAP.SPRINK PO SCH ×3 (08:43→17:41)
[2022-07-06 16:05] VITALS: BP 123/93
[2022-07-06 20:19] VITALS: BP 124/62
[2022-07-06] MEDS ORDERED: risperiDONE 1 MG TABLET ONE (20:37)
--- NOTE | 2022-07-06 21:07 | NUR ---
GPS RN NOTES: RISPERDAL 0.5MG WASTED PER PARTIAL DOSE ORDER.
--- NOTE | 2022-07-06 21:10 | NUR ---
GPS RN NOTES: RISPERDAL NOT IN STOCK IN OMNICELL. 1MG PULLED FROM 3WEST AND RISPERDAL 0.5MG ADMINISTERED AT 2101.
--- NOTE | 2022-07-07 06:48 | NUR ---
GPS RN CLOSING NOTES: PATIENT IS CURRENTLY SLEEPING IN BED. PATIENT SLEPT 8HRS THIS SHIFT. WEEKLY SKIN ASSESSMENT DONE, PICTURES TAKEN AND PLACED IN PATIENT CHART. PATIENT CLEANED AND Z-GUARD APPLIED TO SACRAL AREA FOR PROTECTION. ALL PATIENT CARE NEEDS HAVE BEEN MET ANTICIPATED. WILL CONTINUE TO MONITOR Q15 MINS AND ENDORSE TO AM SHIFT.
[2022-07-07 08:00] VITALS: BP 136/75
[2022-07-07] MEDS: ENSURE ENLIVE 237 ML LIQUID (VANILLA) PO SCH ×2 (08:27→17:49)
[2022-07-07] MEDS: SERTRALINE HCL 50 MG TABLET PO SCH ×2 (08:28→17:50)
[2022-07-07] MEDS: risperiDONE 1 MG TABLET PO SCH ×3 (08:28→21:22)
[2022-07-07] MEDS: DIVALPROEX SODIUM 125 MG CAP.SPRINK PO SCH ×3 (08:28→17:49)
--- NOTE | 2022-07-07 10:26 | NUR ---
Court Notification: SW left a voicemail to pt's Nixon ([phone]) of [phone] hearing.
--- NOTE | 2022-07-07 10:27 | NUR ---
Court Hearing: Pt's court hearing for 5250 was today and it was upheld for GD.
--- NOTE | 2022-07-07 10:39 | NUR ---
RN-CO< DR JOSEPH MADE AWARE OF PATIENT'S POOR PO INTAKE.
[2022-07-07 11:28] LABS: BASOPHILS # (AUTO) 0.1 K/uL (0.0-0.2); BASOPHILS % (AUTO) 0.8 % (0.0-2.0); EOSINOPHILS % (AUTO) 1.4 % (0.0-6.0); HEMATOCRIT 42 % (33-45); HEMOGLOBIN 13.6 g/dL (11.5-14.8); LYMPHOCYTES # (AUTO) 0.7 K/uL (0.8-4.8); LYMPHOCYTES % (AUTO) 8.7 % (20.0-44.0); MEAN CORPUSCULAR HGB CONC 33 g/dl (31.0-36.0); MEAN CORPUSCULAR VOLUME 86 fL (82-100); MONOCYTES # (AUTO) 0.7 K/uL (0.1-1.30); NEUTROPHILS # (AUTO) 6.8 K/uL (1.8-8.9); NEUTROPHILS % (AUTO) 81.1 % (43.0-81.0); PLATELET COUNT (AUTO) 175 K/uL (150-450); RED BLOOD CELL COUNT(AUTO) 4.81 MIL/uL (4.0-5.2); WHITE BLOOD COUNT (AUTO) 8.4 K/uL (4.3-11.0)
[2022-07-07 12:03] LABS: ALBUMIN 3.4 g/dL (3.4-5.0); BILIRUBIN,TOTAL 0.4 mg/dL (0.2-1.0); CALCIUM, SERUM 8.9 mg/dL (8.5-10.1); CREATININE 0.8 mg/dL (0.6-1.3); MAGNESIUM 2.4 mg/dL (1.8-2.4); POTASSIUM 4.4 mmol/L (3.5-5.1); TOTAL PROTEIN, SERUM 6.7 g/dL (6.4-8.2)
--- NOTE | 2022-07-07 13:37 | NUR ---
RN-CO: DR JOSEPH ORDERED UA AND CX , NOTED.
[2022-07-07 16:00] VITALS: BP 141/79
--- NOTE | 2022-07-07 19:02 | NUR ---
NURSE NOTE: PT IS COOPERATIVE WITH CARE ,ALERT X1 , NO ACUTE DISTRESS NOTED. COMPLIANT WITH MEDICATIONS. EATING ABOUT 50% AVERAGE FOR THE DAY. PT MUMBLES TO SELF ALL THROUGHOUT SHIFT. NEEDS MAXIMUM ASSIST WITH ADL'S AND FEEDING. ALL NEEDS ATTENDED AND ANTICIPATED. ENCOURAGED AND ASSIST WITH REPOSITIONING Q 2HRS. GOOD [place] CARE RENDERED. WILL CONT.MONITORING FOR SAFETY AND BEHAVIOR.WILL ENDORSE TO INCOMING SHIFT FOR CONTINUITY OF CARE.
[2022-07-07 19:38] LABS: BILIRUBIN,URINE NEGATIVE (NEGATIVE); COLOR,URINE YELLOW (YELLOW); LEUKOCYTE ESTERASE ,URINE MODERATE (NEGATIVE); NITRITE, URINE NEGATIVE (NEGATIVE); PROTEIN,URINE NEGATIVE (NEGATIVE); UGLUCOSE NEGATIVE (NEGATIVE); UROBILINOGEN,URINE 0.2 EU/dL (0.2)
[2022-07-07 19:42] LABS: BACTERIA,URINE 2+ /HPF (None Seen); RBC,URINE 0-2 /HPF (0-2); SQUAMOUS EPITHELIAL CELL,UR 0-2 /HPF (None Seen); WBC,URINE 21-50 /HPF (0-3)
[2022-07-07 19:58] VITALS: BP 137/68
[2022-07-07] MEDS: TEMAZEPAM 7.5 MG CAPSULE PO PRN (21:22)
[2022-07-08 08:00] VITALS: BP 160/79
[2022-07-08] MEDS: ENSURE ENLIVE 237 ML LIQUID (VANILLA) PO SCH ×2 (08:00→17:37)
[2022-07-08] MEDS: DIVALPROEX SODIUM 125 MG CAP.SPRINK PO SCH ×3 (09:54→17:36)
[2022-07-08] MEDS: risperiDONE 1 MG TABLET PO SCH ×3 (09:55→21:05)
[2022-07-08] MEDS: SERTRALINE HCL 50 MG TABLET PO SCH ×2 (09:55→17:36)
[2022-07-08] MEDS: CEPHALEXIN MONOHYDRATE 500 MG CAPSULE PO SCH ×2 (14:39→21:04)
--- NOTE | 2022-07-08 14:49 | NUR ---
ADMIN MEDICATION OF DEPAKOTE - ONE PILL THE ABT OF KEFLEX FELL ON FLOOR THREW AWAY WILL GET FROM PYXIS AND ADMIN TO PT.
--- NOTE | 2022-07-08 14:50 | NUR ---
PT SITTING IN CHELI CHAIR WATCHING TV IN REC ROOM COMPLIANT WITH CARE AND MEDS IF CRUSHED AND PLACED INTO APPLE SAUCE OR PUDDING, HAS NO C/O PAIN AND SHOWS NO S/S OF ANY DISTRESS NOTED AT THIS TIME.
--- NOTE | 2022-07-08 15:12 | NUR ---
PT DOSE OF KEFLEX GIVEN, RECEIVED FROM [place] GIVEN PO WITH APPLE SAUCE, NO ADVERSE SIDE EFFECTS NOTED DURING SHIFT OF ABT ADMIN.
[2022-07-08 16:01] VITALS: BP 130/87
[2022-07-08 20:25] VITALS: BP 134/59
[2022-07-09 08:00] VITALS: BP 101/71
[2022-07-09] MEDS: CEPHALEXIN MONOHYDRATE 500 MG CAPSULE PO SCH ×2 (08:25→21:18)
[2022-07-09] MEDS: ENSURE ENLIVE 237 ML LIQUID (VANILLA) PO SCH ×2 (08:25→17:15)
[2022-07-09] MEDS: DIVALPROEX SODIUM 125 MG CAP.SPRINK PO SCH ×3 (08:25→16:15)
[2022-07-09] MEDS: SERTRALINE HCL 50 MG TABLET PO SCH ×2 (08:26→16:14)
[2022-07-09] MEDS: risperiDONE 1 MG TABLET PO SCH ×3 (09:43→21:18)
[2022-07-09 16:00] VITALS: BP 125/85
[2022-07-09 19:52] VITALS: BP 119/58
[2022-07-09 20:00] VITALS: BP 119/58
[2022-07-10 08:00] VITALS: BP 111/74
[2022-07-10] MEDS: SERTRALINE HCL 50 MG TABLET PO SCH ×2 (08:06→16:31)
[2022-07-10] MEDS: DIVALPROEX SODIUM 125 MG CAP.SPRINK PO SCH ×3 (08:07→16:31)
[2022-07-10] MEDS: risperiDONE 1 MG TABLET PO SCH ×3 (08:07→21:10)
[2022-07-10] MEDS: CEPHALEXIN MONOHYDRATE 500 MG CAPSULE PO SCH ×2 (08:09→21:10)
[2022-07-10] MEDS: ENSURE ENLIVE 237 ML LIQUID (VANILLA) PO SCH ×2 (09:13→17:27)
--- NOTE | 2022-07-10 11:45 | NUR ---
RN Notes: Receved pt. in the july chair in the hallway, quiet and confused. Ate 100% for breakfast with staff assistance and due meds given. Morning care rendered and pt. is cooperative to care. Pt. reoriented to person, place, day, date and situation. No distress and no agitation noted. Will continue to monitor for safety.
[2022-07-10 16:00] VITALS: BP 132/63
[2022-07-10 20:00] VITALS: BP 120/85
--- NOTE | 2022-07-10 20:57 | NUR ---
RN NOTES: RECEIVED PATIENT IN HER ROOM RESTING IN BED COMFORTABLY. PATIENT REMAINS PASSIVE, CONFUSED, DISORIENTED, DISORGANIZED, MUMBLING TO SELF. NEEDS MAXIMUM ASSIST WITH ADL'S. SAFETY PRECAUTIONS MAINTAINED. WILL CONTINUE TO MONITOR Q15 MIN ROUNDS FOR SAFETY AND BEHAVIOR.
[2022-07-11 08:00] VITALS: BP 160/81
--- NOTE | 2022-07-11 08:13 | NUR ---
SW Discharge Note: Patient will be discharged to a locked detention facility to [facility] [address] [place] [address]; ([phone]). Please arrange ambulance transportation. Instructor Programmable Controllers spoke with Dania, Aurist at [facility]; ([phone]), who stated patient will be accepted at facility today. Patient is alert and oriented x1, and is not able to plan for self-care at this time, but is willing to accept care provided for her at the facility. Patient denies any suicidal or homicidal ideations. Patient is aware and agreeable with discharge plans. Patients GLADYS Alicea ([phone]) is aware and agreeable. Patient will continue to follow-up with her (Psychiatrist) Dr. Brand [address], [place] [address]; ([phone]) and Fundraising Director Dr. Gonzalez [address], [place] [address]; ([phone]). Patient presents with euthymic mood and congruent affect.
[2022-07-11] MEDS: ENSURE ENLIVE 237 ML LIQUID (VANILLA) PO SCH (08:48)
[2022-07-11] MEDS: DIVALPROEX SODIUM 125 MG CAP.SPRINK PO SCH ×2 (08:50→13:23)
[2022-07-11] MEDS: CEPHALEXIN MONOHYDRATE 500 MG CAPSULE PO SCH (08:50)
[2022-07-11] MEDS: SERTRALINE HCL 50 MG TABLET PO SCH (08:50)
[2022-07-11] MEDS: risperiDONE 1 MG TABLET PO SCH (09:16)
--- NOTE | 2022-07-11 10:11 | NUR ---
Dr. Brand gave an order to D/C hold and D/C to [facility] and to follow up with psych and medical doctors. Dr. Brand gave an order to continue same meds including prn.
--- NOTE | 2022-07-11 14:30 | NUR ---
GPS/RN PT LEFT VIA AMBULANCE TO [facility]. EXIT CARE INSTRUCTIONS AND MEDS LIST PROVIDED. REPORT GIVEN TO TINO/ DOCK MANAGER. NO ACUTE DISTRESS NOTED. UNABLE TO DO PICTURES OMN DISCHARGE PT BECOME RESISTIVE.
== END 2022-07-11 14:30 | DRG 885 ==
LOC: ER 10:00 → GPS 14:40
PROVIDERS: ADMIT Psychiatry & Neurology Psychosomatic Medicine; ATTEND Internal Medicine
DX: F29 Unspecified psychosis not due to a substance or known physiological condition (principal); G93.41 Metabolic encephalopathy; F02.84 Dementia in other diseases classified elsewhere, unspecified severity, with anxiety; N39.0 Urinary tract infection, site not specified; F32.A Depression, unspecified; G31.09 Other frontotemporal neurocognitive disorder; B96.89 Other specified bacterial agents as the cause of diseases classified elsewhere; R27.9 Unspecified lack of coordination; M62.81 Muscle weakness (generalized); Z20.822 Contact with and (suspected) exposure to COVID-19
CPT/HCPCS: 36415; 80048-TC; 80053-TC; 80061-TC; 80076-TC; 80164-TC; 81001; 82962-TC; 83735-TC; 85025-TC; 87081-TC; 87086-TC; 97112-TC; 97116-TC; 97530-TC; C9803; G0480